=== PATIENT | female | born 1970 | race Caucasian/White ===

== ENCOUNTER 2023-03-29 02:27 | Emergency (ER) | payer MEDICAID ==
[~2023-03-29] VITALS: Ht 157.5 cm; Wt 59.0 kg
[~2023-03-29 02:27] MED LIST: IBUP-2213 PO; NAPR-1847 PO; ONDA-188 SL
[2023-03-29 02:31] VITALS: BP 95/51; PULSE 76; RESP 16; TEMP 96.6; O2SAT 99
[2023-03-29 05:10] VITALS: TEMP 97.9
[2023-03-29] MEDS ORDERED: KETOROLAC 30 MG/ML VIAL IVP ONE (06:20)
[2023-03-29] MEDS ORDERED: NACL 0.9% 1,000 ML IV ONE (06:20)
[2023-03-29] MEDS ORDERED: MORPHINE SULFATE 4 MG/ML SYR IM ONE (06:50)
[2023-03-29] MEDS ORDERED: IBUP-2213 PO (07:00)
[2023-03-29] MEDS ORDERED: ACET-5629 PO (07:00)
[2023-03-29 07:23] VITALS: BP 122/74; PULSE 71; RESP 17; O2SAT 98
== END 2023-03-29 07:24 | disposition home or self-care (01) ==
LOC: MED 02:27
DX: M54.50 Low back pain, unspecified (principal); R06.02 Shortness of breath; R20.0 Anesthesia of skin; E11.9 Type 2 diabetes mellitus without complications; J45.909 Unspecified asthma, uncomplicated; Z79.899 Other long term (current) drug therapy; Z79.1 Long term (current) use of non-steroidal anti-inflammatories (NSAID); Z88.5 Allergy status to narcotic agent
CPT/HCPCS: 81002; 96372; 99283; J2270

== ENCOUNTER 2023-04-19 08:42 | Emergency (ER) | payer MEDICAID ==
[~2023-04-19] VITALS: Ht 157.5 cm; Wt 59.0 kg
[~2023-04-19 08:42] MED LIST changes: +ACET-5629 PO
[2023-04-19 09:12] VITALS: BP 117/60; PULSE 69; RESP 18; TEMP 97.8; O2SAT 97
[2023-04-19] MEDS ORDERED: METOCLOPRAMIDE 10 MG/2 ML INJ VIAL IVP ONE (09:30)
[2023-04-19] MEDS ORDERED: NACL 0.9% 1,000 ML IV ONE (09:30)
[2023-04-19] MEDS ORDERED: ACETAMINOPHEN 325 MG TAB PO ONE (09:30)
[2023-04-19] MEDS ORDERED: diphenhydrAMINE 50 MG/ML VIAL IVP ONE (09:30)
[2023-04-19 09:50] VITALS: BP 110/60; PULSE 69; RESP 15; TEMP 98.3; O2SAT 97
[2023-04-19] MEDS ORDERED: IBUP-2213 PO (10:49)
[2023-04-19] MEDS ORDERED: KETOROLAC 30 MG/ML VIAL IVP ONE ×2 (10:50)
== END 2023-04-19 11:09 | disposition home or self-care (01) ==
LOC: MED 08:42
DX: R51.9 Headache, unspecified (principal); J45.909 Unspecified asthma, uncomplicated; E11.9 Type 2 diabetes mellitus without complications; Z88.5 Allergy status to narcotic agent; Z79.899 Other long term (current) drug therapy; Z88.8 Allergy status to other drugs, medicaments and biological substances
CPT/HCPCS: 70450; 96361; 96374; 96375; 99285; J1200; J1885; J2765; J7030

== ENCOUNTER 2023-05-28 12:05 | Emergency (ER) | payer MEDICAID ==
[~2023-05-28] VITALS: Ht 157.5 cm; Wt 56.2 kg
[2023-05-28 12:28] VITALS: BP 103/71; PULSE 90; RESP 14; TEMP 97.4; O2SAT 96
[2023-05-28 13:09] LABS: BASOPHILS # (AUTO) 0.1 K/uL (0.00-0.22); BASOPHILS % (AUTO) 0.9 % (0.0-2.0); EOSINOPHILS # (AUTO) 0.3 K/uL (0-0.4); EOSINOPHILS % (AUTO) 3.6 % (0.0-4.0); HEMATOCRIT 37.5 % (36-48); HEMOGLOBIN 12.6 g/dL (12.0-16.0); LYMPHOCYTES # (AUTO) 1.4 K/uL (2.5-16.5); LYMPHOCYTES % (AUTO) 20.2 % (20.5-51.1); MEAN CORPUSCULAR HEMOGLOBIN 27 pg (27-31); MEAN CORPUSCULAR HGB CONC 34 g/dL (33-37); MEAN CORPUSCULAR VOLUME 80.6 fL (80-94); MONOCYTES # (AUTO) 0.5 K/uL (0.8-1.0); MONOCYTES % (AUTO) 7.6 % (1.7-9.3); NEUTROPHILS # (AUTO) 4.8 K/uL (1.8-7.7); NEUTROPHILS % (AUTO) 67.7 % (42.2-75.2); PLATELET COUNT (AUTO) 335 K/uL (140-450); RED BLOOD CELL COUNT(AUTO) 4.65 MIL/uL (4.20-5.40); RED CELL DISTRIBUTION WIDTH 16.2 % (11.6-13.7); WHITE BLOOD COUNT (AUTO) 7.1 K/uL (4.8-10.8)
[2023-05-28 13:33] LABS: ALBUMIN 3.2 g/dL (3.4-5.0); ANION GAP 12.6 (8-16); CALCIUM 8.7 mg/dL (8.5-10.1); CARBON DIOXIDE 26.3 mmol/L (21-32); CREATININE 0.6 mg/dL (0.6-1.3); POTASSIUM 3.9 mmol/L (3.5-5.1); TOTAL BILIRUBIN 0.3 mg/dL (0.0-1.0); TOTAL PROTEIN, SERUM 7.4 g/dL (6.4-8.2)
[2023-05-28 13:37] VITALS: O2SAT 96
[2023-05-28 13:51] LABS: BILIRUBIN,URINE NEGATIVE (NEGATIVE); BLOOD, URINE NEGATIVE (NEGATIVE); LEUKOCYTE ESTERASE ,URINE NEGATIVE (NEGATIVE); NITRITE, URINE NEGATIVE (NEGATIVE); PROTEIN,URINE NEGATIVE (NEGATIVE); UGLUCOSE NEGATIVE (NEGATIVE); UROBILINOGEN,URINE 0.2 EU/dL (0.2 - 1)
[2023-05-28 13:52] LABS: APPEARANCE,URINE CLEAR (CLEAR); COLOR,URINE YELLOW (YELLOW)
== END 2023-05-28 14:11 | disposition home or self-care (01) ==
LOC: MED 12:05
DX: M25.551 Pain in right hip (principal); M79.671 Pain in right foot; R07.81 Pleurodynia; J45.909 Unspecified asthma, uncomplicated; Z79.1 Long term (current) use of non-steroidal anti-inflammatories (NSAID); Z79.899 Other long term (current) drug therapy
CPT/HCPCS: 36415; 71045; 80053; 81003; 83690; 84484; 85025; 93005; 99285

== ENCOUNTER 2023-07-13 01:00 | Emergency (ER) | payer MEDICAID ==
[~2023-07-13] VITALS: Ht 157.5 cm; Wt 58.5 kg
[2023-07-13 01:27] VITALS: BP 90/57; PULSE 76; RESP 20; TEMP 98; O2SAT 98
[2023-07-13] MEDS ORDERED: NACL 0.9% 1,000 ML IV ONE (01:55)
[2023-07-13] MEDS ORDERED: KETOROLAC 30 MG/ML VIAL IVP ONE (01:55)
[2023-07-13 02:00] VITALS: BP 90/57; PULSE 76; RESP 20; TEMP 98; O2SAT 98
[2023-07-13 02:04] LABS: BASOPHILS # (AUTO) 0.1 K/uL (0.00-0.22); BASOPHILS % (AUTO) 0.7 % (0.0-2.0); EOSINOPHILS # (AUTO) 0.4 K/uL (0-0.4); EOSINOPHILS % (AUTO) 4.3 % (0.0-4.0); HEMATOCRIT 37.2 % (36-48); HEMOGLOBIN 12.2 g/dL (12.0-16.0); LYMPHOCYTES # (AUTO) 1.8 K/uL (2.5-16.5); LYMPHOCYTES % (AUTO) 20.2 % (20.5-51.1); MEAN CORPUSCULAR HEMOGLOBIN 27 pg (27-31); MEAN CORPUSCULAR HGB CONC 33 g/dL (33-37); MEAN CORPUSCULAR VOLUME 82.2 fL (80-94); MONOCYTES # (AUTO) 0.6 K/uL (0.8-1.0); MONOCYTES % (AUTO) 6.4 % (1.7-9.3); NEUTROPHILS # (AUTO) 5.9 K/uL (1.8-7.7); NEUTROPHILS % (AUTO) 68.4 % (42.2-75.2); PLATELET COUNT (AUTO) 326 K/uL (140-450); RED BLOOD CELL COUNT(AUTO) 4.52 MIL/uL (4.20-5.40); RED CELL DISTRIBUTION WIDTH 16.4 % (11.6-13.7); WHITE BLOOD COUNT (AUTO) 8.7 K/uL (4.8-10.8)
[2023-07-13 02:15] LABS: ANION GAP 8.4 (8-16); CALCIUM 8.7 mg/dL (8.5-10.1); CARBON DIOXIDE 32.2 mmol/L (21-32); CREATININE 0.7 mg/dL (0.6-1.3); POTASSIUM 3.6 mmol/L (3.5-5.1)
[2023-07-13 02:21] LABS: ALBUMIN 2.9 g/dL (3.4-5.0); BILIRUBIN,DIRECT 0.1 mg/dL (0.0-0.3); TOTAL BILIRUBIN 0.2 mg/dL (0.0-1.0); TOTAL PROTEIN, SERUM 7.1 g/dL (6.4-8.2)
[2023-07-13 03:07] LABS: APPEARANCE,URINE CLEAR (CLEAR); BILIRUBIN,URINE NEGATIVE (NEGATIVE); BLOOD, URINE NEGATIVE (NEGATIVE); COLOR,URINE YELLOW (YELLOW); LEUKOCYTE ESTERASE ,URINE NEGATIVE (NEGATIVE); NITRITE, URINE NEGATIVE (NEGATIVE); PROTEIN,URINE NEGATIVE (NEGATIVE); UGLUCOSE NEGATIVE (NEGATIVE); UROBILINOGEN,URINE 0.2 EU/dL (0.2 - 1)
[2023-07-13 03:48] LABS: LACTIC ACID 0.6 mmol/L (0.4-2.0)
[2023-07-13 04:28] LABS: FLU A ANTIGEN negative (NEGATIVE); FLU B ANTIGEN NEGATIVE (NEGATIVE)
[2023-07-13] MEDS ORDERED: NIRM1TAB PO (04:56)
[2023-07-13] MEDS ORDERED: [UNRECOGNIZED DRUG - CODE] PO (05:42)
== END 2023-07-13 04:58 | disposition home or self-care (01) ==
LOC: MED 01:00
DX: U07.1 COVID-19 (principal); J45.909 Unspecified asthma, uncomplicated; Z88.8 Allergy status to other drugs, medicaments and biological substances; Z79.899 Other long term (current) drug therapy
CPT/HCPCS: 36415; 80048; 80076; 81003; 83605; 85025; 87040; 87426; 87804; 96361; 96374; 99283; J1885; J7030

== ENCOUNTER 2023-07-25 00:25 | Emergency (ER) | payer MEDICAID ==
[~2023-07-25] VITALS: Ht 157.5 cm; Wt 57.2 kg
[~2023-07-25 00:25] MED LIST changes: +NIRM1TAB PO; +[UNRECOGNIZED DRUG - CODE] PO
[2023-07-25 00:36] VITALS: BP 107/74; PULSE 95; RESP 20; TEMP 99.3; O2SAT 96
[2023-07-25 02:28] LABS: BASOPHILS % (AUTO) 0.5 % (0.0-2.0); EOSINOPHILS # (AUTO) 0.3 K/uL (0-0.4); EOSINOPHILS % (AUTO) 3.2 % (0.0-4.0); HEMATOCRIT 36.4 % (36-48); HEMOGLOBIN 12.2 g/dL (12.0-16.0); LYMPHOCYTES # (AUTO) 1.6 K/uL (2.5-16.5); MEAN CORPUSCULAR HEMOGLOBIN 27 pg (27-31); MEAN CORPUSCULAR HGB CONC 34 g/dL (33-37); MEAN CORPUSCULAR VOLUME 81.6 fL (80-94); MONOCYTES # (AUTO) 0.7 K/uL (0.8-1.0); MONOCYTES % (AUTO) 7.5 % (1.7-9.3); NEUTROPHILS # (AUTO) 6.4 K/uL (1.8-7.7); NEUTROPHILS % (AUTO) 70.8 % (42.2-75.2); PLATELET COUNT (AUTO) 343 K/uL (140-450); RED BLOOD CELL COUNT(AUTO) 4.46 MIL/uL (4.20-5.40); RED CELL DISTRIBUTION WIDTH 15.4 % (11.6-13.7)
[2023-07-25] MEDS ORDERED: ACETAMINOPHEN EXTRA STRENGTH 500 MG TAB PO ONE (02:40)
[2023-07-25 02:48] LABS: APPEARANCE,URINE CLEAR (CLEAR); BILIRUBIN,URINE NEGATIVE (NEGATIVE); BLOOD, URINE 1+ (NEGATIVE); COLOR,URINE YELLOW (YELLOW); LEUKOCYTE ESTERASE ,URINE TRACE (NEGATIVE); NITRITE, URINE NEGATIVE (NEGATIVE); PROTEIN,URINE NEGATIVE (NEGATIVE); UGLUCOSE NEGATIVE (NEGATIVE); UROBILINOGEN,URINE 0.2 EU/dL (0.2 - 1)
[2023-07-25 02:55] LABS: ANION GAP 12.7 (8-16); CALCIUM 9.1 mg/dL (8.5-10.1); CARBON DIOXIDE 27.1 mmol/L (21-32); CREATININE 0.7 mg/dL (0.6-1.3); POTASSIUM 3.8 mmol/L (3.5-5.1)
[2023-07-25 03:02] LABS: ALANINE AMINOTRANSFERASE 21 U/L (12-78); ALBUMIN 2.9 g/dL (3.4-5.0); ALKALINE PHOSPHATASE 159 U/L (50-136); ASPARTATE AMINOTRANSFERASE 16 U/L (15-37); BILIRUBIN,DIRECT 0.1 mg/dL (0.0-0.3); TOTAL BILIRUBIN 0.2 mg/dL (0.0-1.0); TOTAL PROTEIN, SERUM 7.3 g/dL (6.4-8.2)
[2023-07-25 03:09] LABS: BACTERIA,URINE 1+ /HPF (None Seen); SQUAMOUS EPITHELIAL CELL,UR 4-10 (MOD) /LPF (0-3 (FEW))
[2023-07-25] MEDS ORDERED: cefTRIAXone 1,000 MG VIAL ONE (05:55)
[2023-07-25 08:08] VITALS: BP 109/56; PULSE 81; RESP 16; TEMP 99.3; O2SAT 96
== END 2023-07-25 08:08 | disposition home or self-care (01) ==
LOC: MED 00:25
DX: B19.10 Unspecified viral hepatitis B without hepatic coma (principal); R60.9 Edema, unspecified; E88.09 Other disorders of plasma-protein metabolism, not elsewhere classified; J45.909 Unspecified asthma, uncomplicated; Z88.5 Allergy status to narcotic agent; Z79.899 Other long term (current) drug therapy
CPT/HCPCS: 36415; 71045; 71250; 74176; 80048; 80076; 81001; 83880; 84484; 85025; 85379; 87040; 87086; 93005; 93970; 96365; 99285; J0696; Q0092

== ENCOUNTER 2023-07-28 18:56 | Emergency (ER) | payer MEDICAID ==
[~2023-07-28] VITALS: Ht 148.6 cm; Wt 58.1 kg
[2023-07-28 19:09] VITALS: BP 117/62; PULSE 79; RESP 20; TEMP 98.3; O2SAT 97
[2023-07-28 20:18] LABS: BASOPHILS # (AUTO) 0.1 K/uL (0.00-0.22); BASOPHILS % (AUTO) 1.4 % (0.0-2.0); EOSINOPHILS # (AUTO) 0.4 K/uL (0-0.4); EOSINOPHILS % (AUTO) 6.3 % (0.0-4.0); HEMATOCRIT 34.5 % (36-48); HEMOGLOBIN 11.6 g/dL (12.0-16.0); LYMPHOCYTES # (AUTO) 1.6 K/uL (2.5-16.5); LYMPHOCYTES % (AUTO) 26.5 % (20.5-51.1); MEAN CORPUSCULAR HEMOGLOBIN 28 pg (27-31); MEAN CORPUSCULAR HGB CONC 34 g/dL (33-37); MONOCYTES # (AUTO) 0.5 K/uL (0.8-1.0); MONOCYTES % (AUTO) 7.7 % (1.7-9.3); NEUTROPHILS # (AUTO) 3.6 K/uL (1.8-7.7); NEUTROPHILS % (AUTO) 58.1 % (42.2-75.2); PLATELET COUNT (AUTO) 359 K/uL (140-450); RED BLOOD CELL COUNT(AUTO) 4.21 MIL/uL (4.20-5.40); RED CELL DISTRIBUTION WIDTH 15.2 % (11.6-13.7); WHITE BLOOD COUNT (AUTO) 6.1 K/uL (4.8-10.8)
[2023-07-28 20:59] LABS: CALCIUM 9.2 mg/dL (8.5-10.1); CARBON DIOXIDE 28.6 mmol/L (21-32); CREATININE 0.5 mg/dL (0.6-1.3); POTASSIUM 3.6 mmol/L (3.5-5.1); TOTAL BILIRUBIN 0.2 mg/dL (0.0-1.0); TOTAL PROTEIN, SERUM 7.3 g/dL (6.4-8.2)
[2023-07-28] MEDS: KETOROLAC 30 MG/ML VIAL IM ONE (21:50)
[2023-07-28] MEDS: LIDOCAINE 5% 1 EA PATCH TP ONE (21:53)
[2023-07-28 21:56] VITALS: O2SAT 99
[2023-07-28 22:52] VITALS: TEMP 98
[2023-07-28] MEDS ORDERED: LID5T TP (23:25)
[2023-07-28 23:38] VITALS: BP 125/52; PULSE 74; RESP 13; O2SAT 98
[2023-07-28] MEDS ORDERED: MORPHINE SULFATE 4 MG/ML SYR IM ONE (23:40)
== END 2023-07-28 23:38 | disposition home or self-care (01) ==
LOC: MED 18:56
DX: M94.0 Chondrocostal junction syndrome [Tietze] (principal); Z79.899 Other long term (current) drug therapy; Z88.5 Allergy status to narcotic agent; Z88.6 Allergy status to analgesic agent
CPT/HCPCS: 36415; 71045; 80053; 83880; 84484; 85025; 93005; 96372; 99285; J1885

== ENCOUNTER 2023-08-14 15:42 | Emergency (ER) | payer MEDICAID ==
[~2023-08-14] VITALS: Ht 157.5 cm; Wt 54.4 kg
[~2023-08-14 15:42] MED LIST changes: -ACET-5629 PO; -IBUP-2213 PO; +LID5T TP; -NAPR-1847 PO; -NIRM1TAB PO; -ONDA-188 SL; -[UNRECOGNIZED DRUG - CODE] PO
[2023-08-14 16:08] VITALS: BP 138/79; PULSE 68; RESP 16; TEMP 98; O2SAT 98
[2023-08-14 23:00] VITALS: BP 138/79; PULSE 68; RESP 16; TEMP 98; O2SAT 98
== END 2023-08-14 23:00 | disposition left against medical advice (07) ==
LOC: MED 15:42
DX: R07.9 Chest pain, unspecified (principal); Z53.21 Procedure and treatment not carried out due to patient leaving prior to being seen by health care provider
CPT/HCPCS: 93005; 99281

== ENCOUNTER 2023-11-23 23:09 | Emergency (ER) | payer MEDICAID ==
[~2023-11-23] VITALS: Ht 157.5 cm; Wt 54.0 kg
[2023-11-23 23:21] VITALS: BP 125/75; PULSE 75; RESP 18; TEMP 98; O2SAT 99
[2023-11-23 23:38] VITALS: TEMP 98
[2023-11-24 00:05] LABS: BASOPHILS # (AUTO) 0.1 K/uL (0.00-0.22); EOSINOPHILS # (AUTO) 0.5 K/uL (0-0.4); EOSINOPHILS % (AUTO) 6.4 % (0.0-4.0); HEMATOCRIT 38.3 % (36-48); HEMOGLOBIN 12.7 g/dL (12.0-16.0); LYMPHOCYTES # (AUTO) 2.3 K/uL (2.5-16.5); LYMPHOCYTES % (AUTO) 26.3 % (20.5-51.1); MEAN CORPUSCULAR HEMOGLOBIN 26 pg (27-31); MEAN CORPUSCULAR HGB CONC 33 g/dL (33-37); MEAN CORPUSCULAR VOLUME 79.5 fL (80-94); MONOCYTES # (AUTO) 0.7 K/uL (0.8-1.0); MONOCYTES % (AUTO) 7.9 % (1.7-9.3); NEUTROPHILS % (AUTO) 58.4 % (42.2-75.2); PLATELET COUNT (AUTO) 435 K/uL (140-450); RED BLOOD CELL COUNT(AUTO) 4.81 MIL/uL (4.20-5.40); RED CELL DISTRIBUTION WIDTH 15.7 % (11.6-13.7); WHITE BLOOD COUNT (AUTO) 8.6 K/uL (4.8-10.8)
[2023-11-24 00:17] LABS: CALCIUM 8.9 mg/dL (8.5-10.1); CARBON DIOXIDE 28.7 mmol/L (21-32); CREATININE 0.8 mg/dL (0.6-1.3); POTASSIUM 3.7 mmol/L (3.5-5.1)
[2023-11-24 00:24] LABS: ALANINE AMINOTRANSFERASE 21 U/L (12-78); ALBUMIN 3.3 g/dL (3.4-5.0); ALKALINE PHOSPHATASE 157 U/L (50-136); ASPARTATE AMINOTRANSFERASE 18 U/L (15-37); BILIRUBIN,DIRECT 0.1 mg/dL (0.0-0.3); TOTAL BILIRUBIN 1.4 mg/dL (0.0-1.0); TOTAL PROTEIN, SERUM 7.4 g/dL (6.4-8.2)
[2023-11-24] MEDS: KETOROLAC 30 MG/ML VIAL IVP ONE (00:41)
[2023-11-24] MEDS: LIDOCAINE 5% 1 EA PATCH TP ONE (00:44)
[2023-11-24 01:32] VITALS: O2SAT 99
[2023-11-24] MEDS: MORPHINE SULFATE 4 MG/ML SYR IM ONE (02:04)
[2023-11-24] MEDS ORDERED: LID5T TP (02:32)
== END 2023-11-24 02:47 | disposition home or self-care (01) ==
LOC: MED 23:09
DX: R07.9 Chest pain, unspecified (principal); Z88.8 Allergy status to other drugs, medicaments and biological substances; Z79.899 Other long term (current) drug therapy
CPT/HCPCS: 36415; 71045; 80048; 80076; 84484; 85025; 93005; 96372; 96374; 99285; J1885; J2270; Q0092

== ENCOUNTER 2023-12-15 15:12 | Emergency (ER) | payer MEDICAID ==
[~2023-12-15] VITALS: Ht 157.5 cm; Wt 55.8 kg
[2023-12-15 15:23] VITALS: BP 92/62; PULSE 82; RESP 18; TEMP 97.1; O2SAT 96
[2023-12-15 17:14] VITALS: BP 100/65; PULSE 80; RESP 18; TEMP 97.4; O2SAT 96
[2023-12-15] MEDS ORDERED: KETOROLAC 30 MG/ML VIAL IM ONE (17:15)
== END 2023-12-15 17:45 | disposition left against medical advice (07) ==
LOC: MED 15:12
DX: M79.10 Myalgia, unspecified site (principal); M06.852 Other specified rheumatoid arthritis, left hip; M06.842 Other specified rheumatoid arthritis, left hand; R07.89 Other chest pain; R51.9 Headache, unspecified; Z88.5 Allergy status to narcotic agent; Z88.8 Allergy status to other drugs, medicaments and biological substances; Z79.899 Other long term (current) drug therapy
CPT/HCPCS: 93005; 99283; J1885

== ENCOUNTER 2024-01-18 18:01 | Emergency (ER) | payer MEDICAID ==
[~2024-01-18] VITALS: Ht 157.5 cm; Wt 54.1 kg
[2024-01-18 18:18] VITALS: BP 109/56; PULSE 87; RESP 18; TEMP 97.3; O2SAT 96
[2024-01-18] MEDS ORDERED: DOCU-299 PO (20:13)
[2024-01-18] MEDS ORDERED: HYDR-2734 TP (20:13)
[2024-01-18 20:36] VITALS: BP 109/56; PULSE 87; RESP 18; TEMP 97.3; O2SAT 96
== END 2024-01-18 20:36 | disposition home or self-care (01) ==
LOC: MED 18:01
DX: K64.9 Unspecified hemorrhoids (principal); K21.9 Gastro-esophageal reflux disease without esophagitis; Z88.8 Allergy status to other drugs, medicaments and biological substances; Z79.899 Other long term (current) drug therapy
CPT/HCPCS: 99282

== ENCOUNTER 2024-04-15 15:10 | Emergency (ER) | payer MEDICAID ==
[~2024-04-15] VITALS: Ht 157.5 cm; Wt 56.7 kg
[~2024-04-15 15:10] MED LIST changes: +DOCU-299 PO; +HYDR-2734 TP
[2024-04-15 16:14] VITALS: BP 134/65; PULSE 72; RESP 18; TEMP 97.2; O2SAT 98
[2024-04-15 17:24] LABS: BILIRUBIN,URINE NEGATIVE (NEGATIVE); BLOOD, URINE 3+ (NEGATIVE); COLOR,URINE YELLOW (YELLOW); LEUKOCYTE ESTERASE ,URINE 2+ (NEGATIVE); NITRITE, URINE POSITIVE (NEGATIVE); PROTEIN,URINE 2+ (NEGATIVE); UGLUCOSE NEGATIVE (NEGATIVE)
[2024-04-15 17:27] LABS: APPEARANCE,URINE SLIGHTLY CLOUDY (CLEAR)
[2024-04-15 17:34] LABS: BACTERIA,URINE 2+ /HPF (None Seen); MUCUS,URINE None Seen /LPF (None Seen); RBC,URINE 11-20 (MOD) /HPF (0-5); SQUAMOUS EPITHELIAL CELL,UR 4-10 (MOD) /LPF (0-3 (FEW))
[2024-04-15] MEDS ORDERED: PYR100 PO (17:36)
[2024-04-15] MEDS ORDERED: NITR100C7 PO (17:36)
== END 2024-04-15 17:53 | disposition home or self-care (01) ==
LOC: MED 15:10
DX: N39.0 Urinary tract infection, site not specified (principal); K21.9 Gastro-esophageal reflux disease without esophagitis; M19.90 Unspecified osteoarthritis, unspecified site; Z79.899 Other long term (current) drug therapy; Z88.6 Allergy status to analgesic agent; Z88.8 Allergy status to other drugs, medicaments and biological substances
CPT/HCPCS: 81001; 87086; 87186; 99283